=== PATIENT | male | born 1950 | race Caucasian/White ===

== ENCOUNTER 2018-01-26 10:06 | Emergency (ER) | payer MEDICARE | END 2018-01-26 11:52 | disposition home or self-care (01) | LOC: E/R 10:06 | DX: S20.219A Contusion of unspecified front wall of thorax, initial encounter (principal); S41.111A Laceration without foreign body of right upper arm, initial encounter; V43.52XA Car driver injured in collision with other type car in traffic accident, initial encounter | CPT/HCPCS: 71045; 99284-25 ==